=== PATIENT | female | born 1945 | race Asian ===

== ENCOUNTER 2021-03-20 15:40 | Emergency (ER) | payer MEDICARE, OTHER, SELFPAY ==
[2021-03-20 15:46] VITALS: BP 196/89; PULSE 95; RESP 18; TEMP 37; O2SAT 97
--- NOTE | 2021-03-20 15:51 | DI.RAD.S_ITS ---
PROCEDURE: XR CHEST 2V INDICATIONS: COUGH 2 WEEKS TECHNIQUE: 2 views of the chest were acquired. COMPARISON: None. FINDINGS: Surgical changes and devices: None. Lungs and pleura: Lungs are clear. No pleural effusions or pneumothorax. Mediastinum: The cardiac contours are within normal limits. The aorta demonstrates calcification and tortuosity. Bones and chest wall: No suspicious bony abnormalities. There is S shaped scoliosis. Pectus excavatum deformity is seen. Age-appropriate bony degenerative changes are seen. Soft tissues appear unremarkable. IMPRESSION: Clear lungs. Scoliosis and pectus excavatum deformity. Dictated by: Javon Shelton M.D. on 03/20/2021 at 15:13 Approved by: Javon Shelton M.D. on 03/20/2021 at 15:13
[2021-03-20 16:21] LABS: COVID19 -Nasal RAPID Negative (Negative)
--- NOTE | 2021-03-20 16:44 | ED_ITS ---
HPI - URI/Sore Throat General Chief Complaint: Upper Respiratory Symptoms Stated Complaint: cough [id number] Time Seen by Provider: 03/20/21 16:44 Source: patient Mode of arrival: Ambulatory Limitations: no limitations History of Present Illness HPI Narrative: 75-year-old female nonsmoker with noncontributory medical history presents with her son and a chief complaint of 2 weeks of cough which seems to be worse at night and is keeping her up. She states on occasion she gets some sharp pain only with cough. She denies the production of sputum. She is not dizzy nor lightheaded. She denies any fever or chills. She has had no nausea, vomiting or diarrhea. She denies abdominal pain change in bowel habits or urinary complaints. She had her COVID vaccination over the summer. She denies any recent long distance travel, history of blood clot or cancer. She has had no hemoptysis. She denies any weight gain or swelling of her lower extremities. Related Data Previous Rx's Medication Instructions Recorded benzonatate 100 mg capsule 100 mg PO TID PRN #14 cap 03/20/21 ([facility]) Allergies Allergy/AdvReac Type Severity Reaction Status Date / Time No Known Drug Allergies Allergy Verified 03/20/21 15:46 Review of Systems Review of Systems Narrative: GENERAL: Denies chills, fatigue, malaise, fever, sweats. HEENT: Denies sinus pain, ear pain, sore throat, difficulty swallowing, dizziness. RESPIRATORY: See HPI CARDIOVASCULAR: Denies chest pain, palpitations, orthopnea, edema, GASTROINTESTINAL: Denies nausea, vomiting, abdominal pain, diarrhea, constipation, melena. : Denies dysuria, frequency, incontinence, hematuria, urinary retention. MUSCULOSKELETAL: denies weakness, joint pain, or bony pain SKIN: Denies rash, skin lesions, or other NEUROLOGIC: Denies weakness, headache, numbness, change in speech, confusion, seizures, incoordination. PSYCHIATRIC: No concerning psychosocial issues. 12 point review of systems is negative except for those stated above Patient History Social History Smoking Status: Never smoker Smoking Status: Never smoker Substance Use Type: does not use Exam Narrative Exam Narrative: GENERAL: [75] year old patient appears stated age. Well- developed patient, in no obvious distress, resting comfortably HEAD: Atraumatic. Normocephalic. EYES: Pupils equal round and reactive. Extraocular motions intact. No scleral icterus. No injection or drainage. ENT: Nose without bleeding, purulent drainage. Clear postnasal drip Throat without erythema, tonsillar hypertrophy or exudate. Airway patent. NECK: Trachea midline. Non tender CARDIOVASCULAR: Regular rate and rhythm without murmurs, gallops, or rubs. RESPIRATORY: Clear to auscultation. Breath sounds equal bilaterally. No wheezes, rales, or rhonchi. GASTROINTESTINAL: Abdomen soft, non-tender, nondistended. EXTREMITIES: No edema or joint tenderness. BACK: Nontender without deformity or crepitance. No flank tenderness. NEURO: AOx3. SKIN: No rash or erythema of visible areas Initial Vital Signs Initial Vital Signs: Vital Signs Temperature 98.6 F 03/20/21 15:46 Pulse Rate 95 H 03/20/21 15:46 Respiratory Rate 18 03/20/21 15:46 Blood Pressure 196/89 H 03/20/21 15:46 Pulse Oximetry 97 03/20/21 15:46 Course Orders Ordered: ED Orders 03/20/21 15:50 COVID19 -Nasal swab/Pre-Proc Stat 03/20/21 15:51 XR chest 2V Stat Vital Signs Vital signs: Vital Signs - 8 hr 03/20/21 15:46 03/20/21 16:57 Temperature 98.6 F 98.3 F Pulse Rate 95 H 82 Respiratory Rate 18 16 Blood Pressure 196/89 H 173/84 H Pulse Oximetry 97 98 MDM - URI/Sore Throat Lab Data Labs: Lab Results 03/20/21 Range/Units 15:50 SARS-CoV-2 (PCR) Negative (Negative) Imaging Data Chest x-ray: Radiologist's Impression: Yolanda Liu??75??F??1945 ? Allergy/Adv: No Known Drug Allergies (More??) Close Chest X-Ray (Signed) Javon Shelton - 03/20/21 Launch?[address] [address] XRay Report Signed Patient: Yolanda Liu MR#: [id number] : 1945 Acct:[id number] Age/Sex: 75 / F Date of Service: 03/20/21 Loc: ED Accession Number: [id number] ?? Procedure: XR chest 2V Ordering Provider: José Antonio Oliver D.O. PROCEDURE:? XR CHEST 2V ? INDICATIONS:? COUGH 2 WEEKS ? TECHNIQUE:? 2 views of the chest were acquired.? ? COMPARISON:? None. ? FINDINGS:? ? Surgical changes and devices:? None.? ? Lungs and pleura:? Lungs are clear.? No pleural effusions or pneumothorax.? ? Mediastinum:? The cardiac contours are within normal limits. The aorta demonstrates calcification and tortuosity. ? Bones and chest wall:? No suspicious bony abnormalities.? There is S shaped scoliosis.? Pectus excavatum deformity is seen.? Age-appropriate bony degenerative changes are seen.? ? Soft tissues appear unremarkable.? IMPRESSION:? Clear lungs. ? Scoliosis and pectus excavatum deformity. ? ? Dictated by: Javon Shelton M.D. on 03/20/2021 at 15:13 ? ? Approved by: Javon Shelton M.D. on 03/20/2021 at 15:13 ? MDM Narrative Medical decision making narrative: Patient very well-appearing with a reassuring history and physical exam. COVID is negative and chest x-ray is clear. She has no cardiac equivalent such as dizziness, weakness, lightheadedness [place] classic complaints. She does have clear postnasal drip raising the question of whether this is playing a role in her cough. We had an extensive discussion and sure the opinion that keeping it simple for now avoiding a bunch of lab tests is appropriate given how well she looks. She has been given extensive return precautions and questions answered to her apparent satisfaction Discharge Plan Departure Patient Disposition: Home Clinical Impression: Cough Instructions: DI for Cough -- Adult Activity Restrictions/Additional Instructions: *You have been diagnosed with [cough. Your physical exam and story are very reassuring. There is no evidence of pneumonia and your COVID test is negative. *What to do: *Please continue to take your regular medications as directed. Also, please consider getting an over the counter antihistamine such as Kendra or Zyrtec [x ] New medication prescriptions sent to your pharmacy: [[facility] ] [ ] New medication written as a paper prescription [ ] No new medications given *Please follow up with your primary care provider in 2-3 days, call for an appointment. Let them know you were seen in the Emergency Department and that we ask that you be seen in follow up. We will electronically transmit a record of today's note if your PCP is in our system *If you do not have a primary care provider please contact the [facility] Resource line at [phone]. They will ask some questions about your medical history and help get you set up with a doctor in the community. *Return to Emergency Department if you should have any new, worsening or concerning symptoms, such as [fever greater than 101 F, shaking chills, worsenin g pain, persistent vomiting or other bothersome symptoms] Prescriptions: New benzonatate [Tessalon Perles] 100 mg capsule 100 mg PO TID PRN (Reason: cough) Qty: 14 RF: 0
[2021-03-20 16:57] VITALS: BP 173/84; PULSE 82; RESP 16; TEMP 36.8; O2SAT 98
== END 2021-03-20 16:59 | disposition home or self-care (01) ==
PROVIDERS: Emergency Provider Emergency Medicine
DX: R05.9 Cough, unspecified (principal); Z20.822 Contact with and (suspected) exposure to COVID-19
CPT/HCPCS: 71046; 87635; 99281; 99283; C9803